=== PATIENT | female | born 1965 | race Caucasian/White ===

== ENCOUNTER 2024-12-05 08:32 | Outpatient (REF) | payer OTHER, SELFPAY ==
--- NOTE | 2024-12-05 08:48 | ECG_ITS ---
Test Reason : F39 F41.8 M81.0 Blood Pressure : */* mmHG Vent. Rate : 66 BPM Atrial Rate : 66 BPM P-R Int : 184 ms QRS Dur : 92 ms QT Int : 390 ms P-R-T Axes : 18 33 24 degrees QTcB Int : 408 ms Sinus rhythm with occasional Premature ventricular complexes Otherwise normal ECG No previous ECGs available Referred By: Preeti Hoover Electronically Signed By: Alonzo Matta
[2024-12-05 09:07] LABS: MANUAL DIFF FLAG NO
[2024-12-05 09:29] LABS: Basophils Percent Auto 0.8 % (0-2); Eosinophils Absolute Auto 0.1 X10*3/uL (0.0-0.4); Eosinophils Percent Auto 2.4 % (0-4); Hematocrit 37.8 % (37.0-47.0); Hemoglobin 12.6 g/dl (12.0-16.0); Lymphocytes Absolute Auto 1.2 X10*3/uL (1.2-4.9); Lymphocytes Percent Auto 32.9 % (20-40); Mean Corpuscular HGB Conc 33.3 g/dl (31.0-35.0); Mean Corpuscular Hemoglobin 28.6 pg (27.0-33.0); Mean Corpuscular Volume 85.9 fL (80.0-98.0); Mean Platelet Volume 10.2 fL (9.4-12.3); Monocytes Absolute Auto 0.3 X10*3/uL (0.1-1.2); Monocytes Percent Auto 7.5 % (2-11); Neutrophils Absolute Auto 2.1 x10*3/uL (2.0-8.3); Neutrophils Percent Auto 56.4 % (45-73); Platelet Count 208 X10*3/uL (160-400); White Blood Count 3.7 X10*3/uL (4.8-10.8)
[2024-12-05 09:37] LABS: Estimated Average Glucose 114 mg/dL; Hemoglobin A1c % 5.6 % (<6.0); Total Hemoglobin (HGBA1C) 3361.1262 umol/L
[2024-12-05 09:41] LABS: Appearance Urine Cloudy; Color Urine Yellow; Glucose Urine UA Negative (Negative); Leukocyte Esterase Urine Large (3+) (Negative); Nitrite Urine Negative (Negative); UMIC TRIGGER UA YES; Urine Blood Negative (Negative); Urine Ketones Trace mg/dL (Negative); Urine Protein Trace mg/dL (Neg-Trace)
[2024-12-05 09:44] LABS: Bacteria Urine 4+ (None Seen); Hyaline Casts Urine 0-2 /LPF (0-2); RBC Urine 0-2 /HPF (0-2); Squamous Epithelial Cell Urine >20 /HPF (0-2); WBC Urine >50 /HPF (0-5)
[2024-12-05 10:03] LABS: Alanine Aminotransferase 15 U/L (0-31); Albumin Level 4.1 g/dL (3.5-5.0); Alkaline Phosphatase 71 U/L (39-117); Anion Gap 13 (12-20); Aspartate Amino Transferase 22 U/L (5-31); Bilirubin Total 0.3 mg/dL (0.0-1.0); Blood Urea Nitrogen 13 mg/dL (9-16); C Reactive Protein < 0.04 mg/dL (< or = 0.50); Calcium 9.1 mg/dL (8.4-10.2); Carbon Dioxide 27 mmol/L (22-29); Chloride 107 mmol/L (96-108); Cholesterol 242 mg/dL (<200); Estimated Glomerular Filt Rate > 60; Glucose Fasting 86 mg/dL (60-99); HDL Cholesterol 70 mg/dL (>40); Iron 96 mcg/dL (30-160); LDL Cholesterol Calculated 151 mg/dL (<100); Percent Iron Saturation 34 % (15-50); Phosphorus 3.7 mg/dL (2.7-4.5); Potassium 3.9 mmol/L (3.3-5.1); Sodium 143 mmol/L (135-145); Total Iron Binding Capacity 282 mcg/dL (228-428); Total Protein 6.9 g/dL (6.5-8.0); Triglycerides 108 mg/dL (<150); Unsaturated Iron Binding 186 ug/dL
[2024-12-05 10:11] LABS: Erythrocyte Sedimentation Rate 9 MM/HR (0-20)
[2024-12-05 10:19] LABS: Free T4 (Free Thyroxine) 1.01 ng/dL (0.71-1.85); Thyroid Stimulating Hormone 2.05 uIU/mL (0.32-4.0)
[2024-12-05 10:31] LABS: Folate 8.2 ng/mL (> or = 4.0); Vitamin B12 313 pg/mL (200-900)
[2024-12-05 10:42] LABS: Parathyroid Hormone Intact 97.7 pg/mL (8.7-77.1)
[2024-12-07 02:03] LABS: Prolactin 9.6 ng/mL
[2024-12-07 15:34] LABS: Homocysteine 9.8 umol/L (<10.4)
[2024-12-09 17:33] LABS: Vitamin D 25-OH, D2 <4 ng/mL; Vitamin D 25-OH, D3 32 ng/mL; Vitamin D 25-OH, Total 32 ng/mL (30-100)
[2024-12-10 17:23] LABS: Methylmalonic Acid 601 nmol/L (69-390)
[2024-12-12 16:04] LABS: Vitamin B6 13.2 ng/mL (2.1-21.7)
[2024-12-13 06:18] LABS: Vitamin B1 25 nmol/L (8-30)
== END 2024-12-05 08:33 | disposition home or self-care (01) ==
LOC: HO.LAB 08:32
PROVIDERS: PCP Registered Nurse; Visit Provider Psychiatry & Neurology Psychiatry
DX: F39 Unspecified mood [affective] disorder (principal); F41.8 Other specified anxiety disorders; M81.0 Age-related osteoporosis without current pathological fracture; I49.3 Ventricular premature depolarization
CPT/HCPCS: 36415; 80053; 80061; 81001; 82306; 82607; 82746; 83036; 83090; 83540; 83921; 83970; 84100; 84146; 84207; 84425; 84439; 84443; 85025; 85652; 86140; 93005

== ENCOUNTER 2024-12-14 09:15 | Outpatient (RCR) | payer OTHER, SELFPAY ==
[2024-12-03 10:49] VITALS: BMI 28.7
[2024-12-03 10:51] VITALS: BP 112/62; PULSE 72; TEMP 37.1
--- NOTE | 2024-12-03 15:03 | PC.ADMIT ---
Patient is a 59 year old female who was referred to [facility] by her psychiatric prescriber secondary to increased depression, anxiety, and grief. Per records patients spouse left in July 2024 after 13 years of marriage. 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 Patient is alert and oriented x4. Calm and cooperative. She presented with depressed mood and anxious affect. Patient reports having passive suicidal thoughts stating, I just want to , no active plans or intent . She was given a copy of her safety plan if needed. Patient reports her goals of treatment are to, Reduce negative self talk she is loud and judgy, feeling more hopeful, future oriented and better at self care . Medications reconciled with patient and patient's pharmacy. Patient reports she is taking medications as prescribed.
--- NOTE | 2024-12-03 21:33 | P.HPPSP_ITS ---
HPI Date of Service: 12/03/24 Chief Complaint: depression Sources of Information: patient interviewed, chart reviewed and crisis/core team assessment reviewed HPI Narrative: Patient is a , recently 59 yo female, licensed therapist, with history of chronic depression, anxiety, chaotic upbringing, relational trauma who was referred by her outpatient treaters with ongoing struggles with sadness, grief, abandonment, in the context of unresolved trauma and dissolution of her marriage and estrangement from her partner. It is been a rough 18 months. Not a great ending of this 13 year relationship. Spin a messy situation. I have been considering going to a partial program since last October after leaving my house for 6 months I returned back to the house in April. things got a little better by July so I did not end up going to a program. It has been months leading up to this break up. I am assuming we are done. I asked them to leave by middle of February. There was a lot of her and financial betrayal. We are legal legally since July of 2021. It is very complicated. . . It has brought back a lot of childhood stuff a lot of relational trauma, a lot of emotional neglect Past Psychiatric History: No prior IPLOC, PHP, respite or detox/rehab admissions SA: denies SIB: denies EDB: denies Aggression: denies Psych provider: [facility] Therapist: Kain Horan PCP: Charlie Brock Previous trials: Prozac (many years ago), Celexa (on for years until 10/2023) CURRENT MEDICATIONS: Abilify 2 mg qam Paxil 40 mg qhs trazodone 25 mg qhs [facility] Medical History (Updated 12/03/24 @ 22:58 by Preeti Hoover MD) Hyperlipidemia Asthma Narrative: Asthma, well controlled Hyperlipidemia Osteoporosis/osteopenia - 2023 DEXA noting in various degrees of OP in various locations h/o vitamin D deficiency (not on supplementation) s/p tonsillectomy at age 5 Denies seizures Concussion x1 mild no LOC (TOPx2 at age 15, 20s/ Misc x1 2011) Post-menopausal ~2018 Ht: 5'0 Wt: 147 lbs ALL: NKDA Surgical History (Updated 12/03/24 @ 10:48 by Ailyn Nieves RN) Hx of tonsillectomy Family History: Mother with Bipolar II Disorder, OCD features MGF abigail, depression, Father struggles with depression Paternal uncle with mood issues Many suicides on maternal side of family: 5 in total (3 before patient was born) including MGF who suicided when patient was age 8, maternal cousin suicided when patient was 27 Social History: , since 2023. No children. (with partner for 13 yrs, in 07/2021) Lives alone Spouse officially moved out in 02/2024, has been living with new partner Completed HS in 1980 Graduated undergraduate 1987 Self-employed: licensed therapist Substance History: Denies Trauma History: parental instability (parents had open marriage), Mom had addiction to sex and other men, father had medical issues/obesity, 3rd parent was an alcoholic. Patient had h/o parentification Diagnostics Vital Signs (24Hr): Vital Signs - 24 hr 12/03/24 10:51 Temperature 98.7 F Pulse Rate 72 Blood Pressure 112/62 BMI result Body Mass Index 28.7 Meds/Allergies Meds Home Medications ?Medication ?Instructions ?Recorded ?Confirmed ?Type aripiprazole 2 mg tablet (Abilify) 2 mg PO DAILY 12/03/24 12/03/24 History paroxetine HCl 40 mg tablet 40 mg PO BEDTIME 12/03/24 12/03/24 History trazodone 50 mg tablet 50 - 100 mg PO BEDTIME 12/03/24 12/03/24 History Allergies Allergies Allergy/AdvReac Type Severity Reaction Status Date / Time mold Allergy Headache Verified 12/03/24 10:49 Assessment & Plan Assessment & Plan (1) Complex posttraumatic stress disorder: Status: Acute Code(s): F43.10 - Post-traumatic stress disorder, unspecified (2) Persistent depressive disorder with anxious distress, currently moderate: Status: Acute Code(s): F34.1 - Dysthymic disorder (3) SHIRA (generalized anxiety disorder): Status: Acute Code(s): F41.1 - Generalized anxiety disorder (4) Attention and concentration deficit: Status: Acute Code(s): R41.840 - Attention and concentration deficit Plan Admit to PHP VS reviewed: abrefile, BP ? bpm continue other regular medications may consider guanfacine, perhaps modafinil? Routine lab work ordered as indicated EKG, routine for baseline QTc for medication considerations as indicated UDS as indicated MassPat reviewed Continue to monitor as per protocol Patient educated on: diagnosis and medication risk/benefits Informed Consent: understands Reason for continued partial hosp. stay Substantial Risk for: inability to function, rapid decompensation and med/psych decompensation Certification I certify that partial hospital treatment is medically necessary due to the symptoms and problems resulting from the patient's mental illness and the failure to treat the patient at the partial hospital level of care would likely result in the patient requiring inpatient psychiatric care which could not be prevented at a less intensive level of care. Time Spent With Patient Time: Total time managing care of this patient today __60__ minutes.
--- NOTE | 2024-12-06 15:01 | HO.PHP ---
Client's case has been opened and reviewed in team.
--- NOTE | 2024-12-10 22:49 | HO.PHPPROGNO ---
Subjective Subjective Date of Service: 12/10/24 Reason For Visit: depression Interim History: Patient seen for follow-up. Not feeling great reports high anxiety an 8/10, has trouble initiating tasks or when she starts them has difficulty seeing them through. Gets caught up in over thinking ruminating, experiences racing thoughts, been difficult to stay motivated or focused. She identifies as feeling unproductive as 1 of the thoughts 1 of the issues that contribute to her depression. Reports depression severity at an 8 or 9/10. She reports energy at a 5/10 and motivation at a 4/10 (with 10 being ideal ). She feels that lack of motivation is the biggest limiting factor in her impairment, and to some degree low energy and anhedonia. She denies any suicidal ideation or thoughts of giving up on life. Medication Compliance: Yes Side effects from medications: No Attending Groups: Yes Review of Systems Acute medical concerns: No Diagnostics Vital Signs (24Hr): BMI result Body Mass Index 28.7 Assessment & Plan Assessment & Plan (1) Complex posttraumatic stress disorder: Status: Acute Code(s): F43.10 - Post-traumatic stress disorder, unspecified (2) Persistent depressive disorder with anxious distress, currently moderate: Status: Acute Code(s): F34.1 - Dysthymic disorder (3) SHIRA (generalized anxiety disorder): Status: Acute Code(s): F41.1 - Generalized anxiety disorder (4) Attention and concentration deficit: Status: Acute Code(s): R41.840 - Attention and concentration deficit Plan start Wellbutrin Sr 50-200 mg qam may consider guanfacine er qd in evening cont Abilify 2 mg qam cont Paxil 40 mg qhs cont trazodone 25 mg qhs Reviewed routine lab work reviewed - suboptimal vitamin B12 EKG, routine reviewed UDS as indicated Continue to monitor Patient educated on: diagnosis and medication risk/benefits Informed Consent: understands Reason for contiued partial hosp. stay Substantial Risk for: inability to function and med/psych decompensation Certification I certify that partial hospital treatment is medically necessary due to the symptoms and problems resulting from the patient's mental illness and the failure to treat the patient at the partial hospital level of care would likely result in the patient requiring inpatient psychiatric care which could not be prevented at a less intensive level of care. Total time managing care of this patient today _30___ minutes. Discharge Plan Discharge Attending provider: Preeti Hoover Medications: New guanfacine 1 mg tablet extended release 24 hr 1 mg PO QPM Qty: 14 0RF mecobalamin (vitamin B12) 1,000 mcg tablet,chewable 1,000 mcg PO DAILY Qty: 30 1RF guanfacine 1 mg tablet extended release 24 hr 1 mg PO QAM Qty: 30 0RF Continued trazodone 50 mg tablet 50 - 100 mg PO BEDTIME Rx Instructions: Patient takes 1/2 tab at bedtime. paroxetine HCl 40 mg tablet 40 mg PO BEDTIME Patient Comments: Patient takes at bedtime. aripiprazole [Abilify] 2 mg Tablet 2 mg PO DAILY Changed bupropion HCl 100 mg tablet sustained-release 12 hr 100 mg PO BID Qty: 30 0RF Stand Alone Forms: Patient Portal Discharge page Patient Education: Post Traumatic Stress Disorder (DC) Print Language: Tajik
--- NOTE | 2024-12-14 09:08 | PC.NURSE ---
Patient lab results including WBC 3.7, CHOLESTEROL 242, LDL 151, METHYLMALONIC ACID 601, PTH 97.7, UR LEUKOCYTE ESTERASE LARGE +3, UR WBC GREATER THAN 50. EKG sinus rhythm with occasional PVC's. Dr. Hoover is aware.
--- NOTE | 2024-12-14 23:55 | P.PNPSP_ITS ---
Subjective Subjective Date of Service: 12/14/24 Reason For Visit: depression Interim History: Patient seen for follow-up, anticipating discharge at the end of program today.? Feel good, feel ready Reports no acute issues or concerns. Medication compliant, medications well- tolerated. Denies any adverse effects.? Mood is stable.? Denies any hopelessness or SI. Denies thoughts of harming self or others at this time. Denies any aggressive ideation or HI. Denies any paranoia or AH or VH. Sleep, appetite, energy stable. Mental Status Exam Mental Status Exam Narrative: Alert, oriented, in no acute distress. Calm, cooperative. Mood stable, affect appropriate. Speech normal. Thought process linear, coherent, more goal- directed. Thought content related to stressors, future-oriented, denies any helplessness, hopelessness or SI.? No aggressive ideation or HI. No paranoia or delusional content elicited. No evidence of psychosis. Insight and judgment fair-good. Diagnostics Vital Signs (24Hr): BMI result Body Mass Index 28.7 Assessment & Plan Assessment & Plan (1) Complex posttraumatic stress disorder: Status: Acute Code(s): F43.10 - Post-traumatic stress disorder, unspecified (2) Persistent depressive disorder with anxious distress, currently moderate: Status: Acute Code(s): F34.1 - Dysthymic disorder (3) SHIRA (generalized anxiety disorder): Status: Acute Code(s): F41.1 - Generalized anxiety disorder (4) Attention and concentration deficit: Status: Acute Code(s): R41.840 - Attention and concentration deficit Plan [facility]charge from [facility] Continue regular medications Refills sent to pharmacy Will defer further medication management to outpatient provider *Safety plan reviewed *Discharge diagnoses, treatment course, discharge plan have been reviewed with patient (including medication regime, medication management, potential side effects) as well as treatment rationale were also revisited *Discharge paperwork signed and given to patient, copy sent for scanning to chart Patient educated on: diagnosis and medication risk/benefits Informed Consent: understands Reason for contiued partial hosp. stay Substantial Risk for: stable for discharge Certification I certify that partial hospital treatment is medically necessary due to the symptoms and problems resulting from the patient's mental illness and the failure to treat the patient at the partial hospital level of care would likely result in the patient requiring inpatient psychiatric care which could not be prevented at a less intensive level of care. Total time managing care of this patient today __30__ minutes. Discharge Plan Discharge Attending provider: Preeti Hoover Medications: New guanfacine 1 mg tablet extended release 24 hr 1 mg PO QPM Qty: 14 0RF mecobalamin (vitamin B12) 1,000 mcg tablet,chewable 1,000 mcg PO DAILY Qty: 30 1RF guanfacine 1 mg tablet extended release 24 hr 1 mg PO QAM Qty: 30 0RF Continued trazodone 50 mg tablet 50 - 100 mg PO BEDTIME Rx Instructions: Patient takes 1/2 tab at bedtime. paroxetine HCl 40 mg tablet 40 mg PO BEDTIME Patient Comments: Patient takes at bedtime. aripiprazole [Abilify] 2 mg Tablet 2 mg PO DAILY Changed bupropion HCl 100 mg tablet sustained-release 12 hr 100 mg PO BID Qty: 30 0RF Stand Alone Forms: Patient Portal Discharge page Patient Education: Post Traumatic Stress Disorder (DC) Print Language: Turkmen
== END 2024-12-14 23:59 | disposition home or self-care (01) ==
LOC: HO.PHPA 09:15
PROVIDERS: Visit Provider Psychiatry & Neurology Psychiatry
DX: F43.10 Post-traumatic stress disorder, unspecified (principal); F34.1 Dysthymic disorder; F41.1 Generalized anxiety disorder; R41.840 Attention and concentration deficit
CPT/HCPCS: 90791; 90853

== ENCOUNTER → 2024-12-14 09:15 | Outpatient (BNV) | payer OTHER, SELFPAY | PROVIDERS: Visit Provider Psychiatry & Neurology Psychiatry | DX: F43.10 Post-traumatic stress disorder, unspecified (principal); F34.1 Dysthymic disorder; F41.1 Generalized anxiety disorder; R41.840 Attention and concentration deficit | CPT/HCPCS: 99213 ==